=== PATIENT | female | born 1980 | race Caucasian/White ===

== ENCOUNTER → 2020-03-29 | Outpatient (CLI) | payer OTHER ==
[~2020-03-29] MED LIST: AMLODIPINE BESYL5 MG PO; ASPIRIN CHEWABL81 MG PO; ATROVENT-HFA12.9 GM INH; AUGMENTIN 875-1 EACH PO; BACTRIM DS TAB1 EACH PO; CYCLOBENZAPRINE5 MG PO; FAMOTIDINE20 MG PO; IBUPROFEN600 MG PO; LISINOPRIL10 MG PO; MEDROL4 MG PO; MICROZIDE12.5 MG PO; NORVASC 5 MG TAB5 MG PO; PENVEE K 500 M500 MG PO; PRINIVIL10 MG PO; PYRIDIUM100 MG PO; TESSALON PERLE100 MG PO; VENTOLIN HFA 66.7 GM INH; VIBRAMYCIN100 MG PO; ZOFRAN ODT 4 MG4 MG SL; ZOFRAN4 MG PO
== END ==
LOC: KOH-I 14:44
DX: M25.511 Pain in right shoulder (principal)
CPT/HCPCS: 73030

== ENCOUNTER → 2020-04-03 | Outpatient (CLI) | payer OTHER | LOC: MRI 03-31 13:45 | DX: M25.511 Pain in right shoulder (principal); M67.813 Other specified disorders of tendon, right shoulder | CPT/HCPCS: 73221 ==

== ENCOUNTER 2020-04-09 16:27 | Emergency (ER) | payer OTHER ==
[~2020-04-09 16:27] MED LIST changes: -ATROVENT-HFA12.9 GM INH; -TESSALON PERLE100 MG PO
[2020-04-09 18:28] LABS: HEMOGLOBIN 14.1 gm/dl (12.3-15.3); RED BLOOD COUNT 4.76 M/UL (4.00-5.10); WHITE BLOOD COUNT 8.6 K/UL (4.5-11.0)
[2020-04-09 20:19] LABS: BUN/CREATININE RATIO 15 (0-10)
== END 2020-04-09 23:44 | disposition home or self-care (01) ==
LOC: ER1 16:27
PROVIDERS: Emergency Medicine; Family Medicine
DX: N93.9 Abnormal uterine and vaginal bleeding, unspecified (principal); I10 Essential (primary) hypertension; F17.200 Nicotine dependence, unspecified, uncomplicated; Z88.8 Allergy status to other drugs, medicaments and biological substances; Z88.1 Allergy status to other antibiotic agents; Z91.048 Other nonmedicinal substance allergy status; Z87.19 Personal history of other diseases of the digestive system
CPT/HCPCS: 76830; 80048; 81001; 84703; 85025; 85610; 85730; 99284

== ENCOUNTER 2020-04-17 20:50 | Emergency (ER) | payer OTHER | END 2020-04-18 00:13 | disposition left against medical advice (07) | LOC: ER1 20:50 | DX: R10.2 Pelvic and perineal pain (principal); R20.0 Anesthesia of skin; M54.9 Dorsalgia, unspecified; Z53.21 Procedure and treatment not carried out due to patient leaving prior to being seen by health care provider ==

== ENCOUNTER 2020-05-13 19:12 | Emergency (ER) | payer OTHER ==
[2020-05-13 20:00] LABS: HEMOGLOBIN 12.8 gm/dl (12.3-15.3); RED BLOOD COUNT 4.33 M/UL (4.00-5.10); WHITE BLOOD COUNT 10.9 K/UL (4.5-11.0)
[2020-05-13 20:23] LABS: BUN/CREATININE RATIO 27 (0-10)
[2020-05-13] MEDS ORDERED: ATROVENT-HFA12.9 GM INH (20:57)
[2020-05-13] MEDS ORDERED: TESSALON PERLE100 MG PO (20:57)
== END 2020-05-13 21:55 | disposition home or self-care (01) ==
LOC: ER1 19:12
PROVIDERS: Physician Assistant Medical
DX: R05 Cough (principal); R06.02 Shortness of breath; R50.9 Fever, unspecified; I10 Essential (primary) hypertension; F17.210 Nicotine dependence, cigarettes, uncomplicated; Z90.49 Acquired absence of other specified parts of digestive tract; Z79.82 Long term (current) use of aspirin; Z79.899 Other long term (current) drug therapy; Z86.16 Personal history of COVID-19; Z88.7 Allergy status to serum and vaccine; Z88.6 Allergy status to analgesic agent; Z88.1 Allergy status to other antibiotic agents
CPT/HCPCS: 36415; 71045; 80053; 85025; 85379; 99283

== ENCOUNTER 2020-05-21 17:40 | Emergency (ER) | payer OTHER ==
[~2020-05-21 17:40] MED LIST changes: +ATROVENT-HFA12.9 GM INH; +TESSALON PERLE100 MG PO
[2020-05-21 20:28] LABS: HEMOGLOBIN 12.9 gm/dl (12.3-15.3); RED BLOOD COUNT 4.33 M/UL (4.00-5.10); WHITE BLOOD COUNT 12.7 K/UL (4.5-11.0)
[2020-05-21 20:50] LABS: BUN/CREATININE RATIO 12 (0-10)
== END 2020-05-21 23:34 | disposition home or self-care (01) ==
LOC: ER1 17:40
PROVIDERS: Family Medicine
DX: R07.81 Pleurodynia (principal); I10 Essential (primary) hypertension; K21.9 Gastro-esophageal reflux disease without esophagitis; F17.210 Nicotine dependence, cigarettes, uncomplicated; Z86.16 Personal history of COVID-19; Z79.82 Long term (current) use of aspirin; Z79.899 Other long term (current) drug therapy
CPT/HCPCS: 36415; 71046; 80053; 82550; 82553; 83605; 84484; 85025; 85379; 93005; 99285; Q9967

== ENCOUNTER 2020-08-04 22:03 | Emergency (ER) | payer OTHER | END 2020-08-04 23:31 | disposition home or self-care (01) | LOC: ER1 22:03 | DX: S90.32XA Contusion of left foot, initial encounter (principal); F17.210 Nicotine dependence, cigarettes, uncomplicated; W22.8XXA Striking against or struck by other objects, initial encounter | CPT/HCPCS: 73630; 99283 ==

== ENCOUNTER → 2020-08-08 | Outpatient (CLI) | payer OTHER | LOC: KOH-I 15:28 | DX: R05 Cough (principal); J98.09 Other diseases of bronchus, not elsewhere classified | CPT/HCPCS: 71046 ==

== ENCOUNTER → 2020-08-17 | Outpatient (CLI) | payer OTHER ==
[2020-08-17 12:10] LABS: HEMOGLOBIN 12.4 gm/dl (12.3-15.3); RED BLOOD COUNT 4.42 M/UL (4.00-5.10); WHITE BLOOD COUNT 8.3 K/UL (4.5-11.0)
[2020-08-18 07:12] LABS: FSH, SERUM 4.3 mIU/mL (.); PROLACTIN 8.9 ng/mL (4.8-23.3)
[2020-08-21 20:12] LABS: TESTOSTERONE, FREE, DIRECT 2.3 pg/mL (0.0-4.2)
== END ==
LOC: LAB 11:28
PROVIDERS: Obstetrics & Gynecology
DX: N93.9 Abnormal uterine and vaginal bleeding, unspecified (principal)
CPT/HCPCS: 36415; 82627; 83001; 83002; 84146; 84402; 84443; 84702; 85025

== ENCOUNTER → 2020-09-19 | Outpatient (CLI) | payer OTHER | LOC: KOH-I 10:38 | DX: R06.02 Shortness of breath (principal) | CPT/HCPCS: 71046 ==

== ENCOUNTER → 2020-10-16 | Outpatient (CLI) | payer OTHER | LOC: EXRD 12:59 | DX: E27.9 Disorder of adrenal gland, unspecified (principal) | CPT/HCPCS: 76775 ==

== ENCOUNTER → 2021-02-25 | Outpatient (CLI) | payer OTHER ==
[~2021-02-25] MED LIST changes: +ADULT LOW DOSE81 MG PO; +FEROSUL325 MG PO; +METOPROLOL SUCC25 MG PO; +PROAIR DIGIHAL90 MCG INH; +PROTONIX40 MG PO
[2021-02-25 08:56] LABS: HEMOGLOBIN 15.1 gm/dl (12.3-15.3); RED BLOOD COUNT 4.67 M/UL (4.00-5.10); WHITE BLOOD COUNT 8.4 K/UL (4.5-11.0)
[2021-02-25 09:24] LABS: BUN/CREATININE RATIO 16 (0-10)
== END ==
LOC: OPSV2 08:12
PROVIDERS: Obstetrics & Gynecology
DX: Z01.818 Encounter for other preprocedural examination (principal); N81.9 Female genital prolapse, unspecified
CPT/HCPCS: 36415; 80053; 85025; 93005

== ENCOUNTER → 2021-03-05 | Day surgery (SDC) | payer OTHER ==
[~2021-03-05] MED LIST changes: +AMOXICILLIN500 MG PO; +DOCUSATE SODIU250 MG PO; +PERCOCET 5-3251 EACH PO; +PREDNISONE10 MG PO
== END | disposition home or self-care (01) ==
LOC: OR 07:36 → EDSTATUS 09:30 → OR 09:30
DX: N81.6 Rectocele (principal); D25.1 Intramural leiomyoma of uterus; N80.0 Endometriosis of uterus; N39.41 Urge incontinence; N73.6 Female pelvic peritoneal adhesions (postinfective); I10 Essential (primary) hypertension; K21.9 Gastro-esophageal reflux disease without esophagitis; D64.9 Anemia, unspecified; Z79.82 Long term (current) use of aspirin; Z79.899 Other long term (current) drug therapy; Z88.1 Allergy status to other antibiotic agents; Z87.440 Personal history of urinary (tract) infections; Z87.01 Personal history of pneumonia (recurrent); Z20.822 Contact with and (suspected) exposure to COVID-19
CPT/HCPCS: 84703; C1769; J0690; J1100; J1170; J1885; J2001; J2250; J2405; J2704; J2710; J3010; J7120; U0002

== ENCOUNTER 2021-03-31 09:24 | Emergency (ER) | payer OTHER ==
[2021-03-31] MEDS ORDERED: AUGMENTIN 875-1 EACH PO (09:51)
== END 2021-03-31 10:14 | disposition home or self-care (01) ==
LOC: ER1 09:24
DX: S91.331A Puncture wound without foreign body, right foot, initial encounter (principal); I10 Essential (primary) hypertension; K21.9 Gastro-esophageal reflux disease without esophagitis; Z23 Encounter for immunization; Z87.891 Personal history of nicotine dependence; W22.8XXA Striking against or struck by other objects, initial encounter; Y92.009 Unspecified place in unspecified non-institutional (private) residence as the place of occurrence of the external cause
CPT/HCPCS: 90471; 90714; 99283

== ENCOUNTER → 2021-04-04 | Outpatient (CLI) | payer OTHER | LOC: HEART 5 13:47 | DX: R06.02 Shortness of breath (principal) | CPT/HCPCS: 94060; 94729 ==

== ENCOUNTER → 2021-05-23 | Outpatient (CLI) | payer OTHER | LOC: KOH-I 13:30 | DX: M79.662 Pain in left lower leg (principal) | CPT/HCPCS: 93971 ==

== ENCOUNTER 2021-06-04 20:11 | Emergency (ER) | payer OTHER ==
[2021-06-04 21:13] LABS: HEMOGLOBIN 15.3 gm/dl (12.3-15.3); RED BLOOD COUNT 4.61 M/UL (4.00-5.10); WHITE BLOOD COUNT 9.5 K/UL (4.5-11.0)
[2021-06-04 21:33] LABS: BUN/CREATININE RATIO 6 (0-10)
== END 2021-06-05 01:53 | disposition left against medical advice (07) ==
LOC: ER1 20:11
PROVIDERS: Emergency Medicine
DX: R07.9 Chest pain, unspecified (principal); I10 Essential (primary) hypertension; F17.200 Nicotine dependence, unspecified, uncomplicated
CPT/HCPCS: 71045; 80053; 82550; 82553; 83690; 83880; 84100; 84484; 85025; 85379; 85610; 85730; 93005; 99283

== ENCOUNTER → 2021-10-10 | Outpatient (CLI) | payer OTHER | LOC: KOH-I 08:00 | DX: R51.0 Headache with orthostatic component, not elsewhere classified (principal) | CPT/HCPCS: 70450 ==